=== PATIENT | female | born 1970 | race Caucasian/White ===

== ENCOUNTER → 2024-10-07 12:16 | Outpatient (CLI) | payer OTHER, SELFPAY ==
[2024-10-07 12:42] LABS: Add Manual Diff / Slide Review NO; Basophils Absolute Auto 0 /uL (0-100); Basophils Percent Auto 0.5 % (0-2); Eosinophils Absolute Auto 100 /uL (0-450); Eosinophils Percent Auto 0.8 % (2-4); Hematocrit 42.5 % (36-46); Hemoglobin 14.2 g/dL (12.0-16.0); Lymphocytes Absolute Auto 2300 /uL (1100-4500); Lymphocytes Percent Auto 37.2 % (25-40); Mean Corpuscular HGB Conc 33.6 % (30-36); Mean Corpuscular Hemoglobin 29.3 PG (26-34); Mean Corpuscular Volume 87.4 fL (80-100); Monocytes Absolute Auto 300 /uL (0-900); Neutrophils Absolute Auto 3500 /uL (1500-7000); Neutrophils Percent Auto 56.5 % (50-75); Platelet Count 285 X10^3/uL (150-400); Red Blood Cell Count 4.86 X10^6/uL (4.0-5.2); Red Cell Distribution Width 13.6 % (11.6-14.8); White Blood Cell Count 6.2 X10^3/uL (4.5-11.0)
[2024-10-07 13:35] LABS: Alanine Aminotransferase 23 IU/L (<35); Albumin 4.6 g/dL (3.5-5.0); Albumin Globulin Ratio 1.6 (1.0-2.8); Alkaline Phosphatase 101 U/L (38-126); Aspartate Aminotransferase 27 IU/L (14-36); BUN Creatinine Ratio 21.7 (6-22); Bilirubin Total 0.5 mg/dL (0.2-1.3); Blood Urea Nitrogen 20 mg/dL (7-17); Calcium 10.1 mg/dL (8.4-10.2); Carbon Dioxide 28 mmol/L (22-32); Chloride 105 mmol/L (98-107); Cholesterol 219 mg/dL (140-199); Estimated Glomerular Filt Rate > 60 mL/min (>60); Globulin 2.9 g/dL (1.7-4.1); Glucose 92 mg/dL (70-100); HDL Cholesterol 71 mg/dL (40-60); HEMOLYSIS < 15 (0-50); LDL Cholesterol Calculated 128 mg/dL (<100); Potassium 4.9 mmol/L (3.4-5.1); Sodium 139 mmol/L (137-145); Total Protein 7.5 g/dL (6.3-8.2); Triglycerides 101 mg/dL (35-150)
[2024-10-07 14:13] LABS: TSH w/ Reflex to FT4 0.81 uIU/mL (0.47-4.68)
[2024-10-07 14:51] LABS: Vitamin D 25 Hydroxy (D3) 31.4 ng/mL (30.0-100.0)
== END ==
LOC: LAB 12:20
PROVIDERS: PCP Family Medicine; Referring Provider Family Medicine; Visit Provider Family Medicine
DX: Z13.6 Encounter for screening for cardiovascular disorders (principal); C50.919 Malignant neoplasm of unspecified site of unspecified female breast; Z86.39 Personal history of other endocrine, nutritional and metabolic disease
CPT/HCPCS: 36415; 80053; 80061; 82306; 84443; 85025

== ENCOUNTER → 2025-04-28 08:34 | Outpatient (CLI) | payer OTHER, SELFPAY ==
--- NOTE | 2025-04-28 08:35 | DI.US.S_ITS ---
PROCEDURE: US PELVIC COMPLETE INDICATIONS: Vaginal bleeding TECHNIQUE: Real-time scanning was performed of the pelvic organs, with image documentation. Additional endovaginal scanning was necessary due to incomplete visualization of the adnexal and endometrial structures by transabdominal scanning. COMPARISON: None. FINDINGS: Uterus: Uterus is anteverted and normal in size at 7.2 x 3.4 x 4.4 cm. The myometrium is homogeneous. The endometrium measures 5.4 mm combined thickness. 1.5 cm uterine fibroid noted Ovaries: Nonvisualized Other: No pathologic free abdominal or pelvic fluid. IMPRESSION: Small uterine fibroid. Nonvisualized ovaries Approved by: Gagan Green M.D. on 04/28/2025 at 14:08
== END ==
LOC: US 08:35
PROVIDERS: PCP Family Medicine; Referring Provider Family Medicine; Visit Provider Family Medicine
DX: N93.9 Abnormal uterine and vaginal bleeding, unspecified (principal); D25.9 Leiomyoma of uterus, unspecified
CPT/HCPCS: 76830; 76856

== ENCOUNTER → 2025-06-10 12:49 | Outpatient (CLI) | payer OTHER, SELFPAY ==
--- NOTE | 2025-07-03 10:34 | DIET.OUTPTC ---
Dietary Outpatient Consult Consult Date:06/10/25 Assessment:?55 y F referred to dietitian for obesity. Presents for struggles with weight loss. Recent start in [place]. fasting with eating window 12-6pm, doesn't feel overly hungry by time noon comes, is overall eating less. Hx of breast cancer, increased fatigue. Previously lost weight on stricter calorie deficit and high protein diet. Isn't sustainable diet plan though. Meat is not very enjoyable for pt, not interested in calorie counting in long run. GI symptoms: no N/V/D/C normal BM daily type 4 Doesn't tolerate lactose/eggs Diet Recall: 12-6pm noon-turkey [place] BLT +/- avocado, strickler attendant misa's soup, or salad with 6 oz chk w/ onions, apples, cheese, pumpkin seeds 2pm-string cheese and apple AND/OR [place] protein bar, 2-3x/wk has 1/2 c potato chips 6pm-salmon/chk/cheeseburger 3-4 oz portion, 1/2 c veggies, +/- rice cooks with EVOO or sunflower oil avg 60-75 g protein Fluids:black coffee 1c daily, unsweet tea, water 60 oz, diet soda 2x/day 05/19/2509:06 Height 5 ft 6 in Weight 189 lb 4 oz BMI 30.5 Activity:3 day/wk does 1-2 hour walks Pertinent Labs: TC- 219, LDL 128, HDL 71 Nutrition Diagnosis:? Altered nutrition related lab values r/t Interventions:? Discussed and provided appropriate resources on the following: -Balanced meals and snacks in line with myplate, Mediterranean style of eating -Portion sizing -Education on label reading -Assessing hunger/fullness level -Fiber, amounts, types -Fat, amounts, types -Physical activity, resistance training -Lab values and correlation with nutrition -Brainstormed appropriate meal plan based on food preferences Goals: -2 days resistance training in addition to walks -Sub. meat for plant based protein (beans/lentils) for increased soluble fiber intake 1-2x/wk EER:? 75 g protein (1-1.2 g/kg adjusted IBW), [id number] kcals ([id number]) Monitoring/Evaluations:? F/u in 6 wks Electronically Signed by: Tawana Houston Clinical Dietitian [address] [id number]
== END ==
LOC: DIET 12:49
PROVIDERS: PCP Family Medicine; Referring Provider Family Medicine
DX: E66.9 Obesity, unspecified (principal); Z71.3 Dietary counseling and surveillance; Z68.30 Body mass index [BMI] 30.0-30.9, adult
CPT/HCPCS: 97802